=== PATIENT | female | born 1945 | race Caucasian/White ===

== ENCOUNTER 2017-05-06 09:36 | Inpatient (IN) | payer OTHER ==
[~2017-05-06] VITALS: Ht 170.2 cm; Wt 59.0 kg
[~2017-05-06 09:36] MED LIST: PLA75 PO
[2017-05-06 09:43] VITALS: Ht 170.2 cm; Wt 59.0 kg
[2017-05-06 11:11] LABS: BASOPHIL % 0.4 % (0-2); PLATELET COUNT 170 x10^3mcL (130-400)
[2017-05-06 11:13] LABS: RED CELL DISTRIBUTION WIDTH 17.3 % (11.5-14.5)
[2017-05-06 11:22] LABS: CALCIUM 8.5 mg/dL (8.5-10.1); CARBON DIOXIDE 25.8 mmol/L (21-32); POTASSIUM SERUM 3.9 mmol/L (3.5-5.1)
[2017-05-06 11:25] LABS: BILIRUBIN TOTAL 0.5 mg/dL (0.20-1.00); MAGNESIUM 1.8 mg/dL (1.8-2.4); TOTAL PROTEIN, SERUM 6.9 g/dL (6.4-8.2)
[2017-05-06 11:26] LABS: ALBUMIN 3.2 g/dL (3.4-5.0)
[2017-05-06 11:37] LABS: T3 TOTAL 0.93 ng/mL
[2017-05-06 11:48] LABS: FREE T4 1.23 ng/dL (0.76-1.46); T4(THYROXINE) 8.1 ug/dL (4.7-13.3)
[2017-05-06 12:17] LABS: UA SPECIFIC GRAVITY 1.015 (1.005-1.035); microscopic required? YES; urine erythrocyte TRACE (NEGATIVE)
[2017-05-06 12:57] LABS: AMPHETAMINE QUAL UR NONE DETECTED (NEG <=1000)
[2017-05-06] MEDS ORDERED: TRAZODONE50 M1 PO (13:05)
[2017-05-06] MEDS ORDERED: LASIX20 MG PO (13:05)
[2017-05-06] MEDS ORDERED: TOPROL XL25 MG PO (13:05)
[2017-05-06 18:15] VITALS: BP 159/76
[2017-05-06] MEDS ORDERED: LOVASTATIN40 MG PO (18:52)
[2017-05-06] MEDS ORDERED: EXTENDED PHENY100 MG PO (18:54)
[2017-05-06 20:59] VITALS: BP 119/62
[2017-05-07 05:48] LABS: BASOPHIL % 0.9 % (0-2); PLATELET COUNT 150 x10^3mcL (130-400)
[2017-05-07 06:00] LABS: CALCIUM 8.6 mg/dL (8.5-10.1); CARBON DIOXIDE 25.3 mmol/L (21-32); POTASSIUM SERUM 3.4 mmol/L (3.5-5.1)
[2017-05-07 06:11] VITALS: BP 130/61
[2017-05-07 07:07] LABS: RED CELL DISTRIBUTION WIDTH 16.7 % (11.5-14.5)
[2017-05-07 10:50] VITALS: BP 139/65
[2017-05-07 13:16] VITALS: BP 137/65
[2017-05-07 14:43] VITALS: BP 137/65
[2017-05-07 16:34] VITALS: BP 140/74
[2017-05-07 22:27] VITALS: BP 135/65
[2017-05-08] VITALS (12 sets, daily range): BP systolic 127–148; BP diastolic 47–70
[2017-05-08 08:06] LABS: BASOPHIL % 0.9 % (0-2); PLATELET COUNT 132 x10^3mcL (130-400)
[2017-05-08 08:08] LABS: RED CELL DISTRIBUTION WIDTH 17.7 % (11.5-14.5)
[2017-05-08 10:59] LABS: CALCIUM 9.2 mg/dL (8.5-10.1); CARBON DIOXIDE 28.9 mmol/L (21-32); CREATININE SERUM 1.2 mg/dL (0.6-1.0); POTASSIUM SERUM 3.7 mmol/L (3.5-5.1)
[2017-05-09 06:01] VITALS: BP 121/66
[2017-05-09 06:19] LABS: BASOPHIL % 0.7 % (0-2); PLATELET COUNT 136 x10^3mcL (130-400)
[2017-05-09 06:44] LABS: CARBON DIOXIDE 26.3 mmol/L (21-32); CREATININE SERUM 1.1 mg/dL (0.6-1.0); MAGNESIUM 1.9 mg/dL (1.8-2.4); PHOSPHOROUS 3.8 mg/dL (2.5-4.9); POTASSIUM SERUM 3.5 mmol/L (3.5-5.1)
[2017-05-09 06:50] LABS: RED CELL DISTRIBUTION WIDTH 16.8 % (11.5-14.5)
[2017-05-09 08:00] VITALS: BP 97/66
[2017-05-09 13:06] VITALS: BP 128/59
[2017-05-09 14:51] VITALS: BP 128/59
== END 2017-05-09 15:50 | disposition home health service (06) | DRG 146 ==
LOC: ED 09:36 → DU 12:47 → MU 05-09 11:57
PROVIDERS: Emergency Medicine; Family Medicine
PROC: 0JB43ZX Excision of Right Neck Subcutaneous Tissue and Fascia, Percutaneous Approach, Diagnostic (ICD-10-PCS; principal; 2017-05-08)
DX: C76.0 Malignant neoplasm of head, face and neck (principal); N17.0 Acute kidney failure with tubular necrosis; I21.A1 Myocardial infarction type 2; I50.41 Acute combined systolic (congestive) and diastolic (congestive) heart failure; J90 Pleural effusion, not elsewhere classified; N39.0 Urinary tract infection, site not specified; E44.0 Moderate protein-calorie malnutrition; I42.0 Dilated cardiomyopathy; I11.0 Hypertensive heart disease with heart failure; Z88.8 Allergy status to other drugs, medicaments and biological substances; Z95.1 Presence of aortocoronary bypass graft; R56.9 Unspecified convulsions; R06.03 Acute respiratory distress; I25.10 Atherosclerotic heart disease of native coronary artery without angina pectoris; I44.7 Left bundle-branch block, unspecified; Z87.891 Personal history of nicotine dependence; F32.9 Major depressive disorder, single episode, unspecified; R31.9 Hematuria, unspecified; D64.9 Anemia, unspecified; I73.9 Peripheral vascular disease, unspecified; Z90.49 Acquired absence of other specified parts of digestive tract; E78.5 Hyperlipidemia, unspecified; R22.1 Localized swelling, mass and lump, neck; I71.4 Abdominal aortic aneurysm, without rupture; Z68.26 Body mass index [BMI] 26.0-26.9, adult
CPT/HCPCS: 36600; 49180; 83880; 84439; 87804; 88344; J0696; J1644; J1940; J2001; J7030; Q0092; Q9967

== ENCOUNTER 2017-06-15 10:33 | Inpatient (IN) | payer OTHER ==
[~2017-06-15] VITALS: Ht 170.2 cm; Wt 56.5 kg
[~2017-06-15 10:33] MED LIST changes: +EXTENDED PHENY100 MG PO; +LASIX20 MG PO; +LOVASTATIN40 MG PO; +TOPROL XL25 MG PO; +TRAZODONE50 M1 PO
[2017-06-15 11:09] LABS: BASOPHIL % 0.4 % (0-2); PLATELET COUNT 185 x10^3mcL (130-400)
[2017-06-15 11:21] LABS: CALCIUM 9.2 mg/dL (8.5-10.1); CARBON DIOXIDE 22.9 mmol/L (21-32); CREATININE SERUM 1.2 mg/dL (0.6-1.0); POTASSIUM SERUM 3.7 mmol/L (3.5-5.1)
[2017-06-15 11:24] LABS: RED CELL DISTRIBUTION WIDTH 18.5 % (11.5-14.5)
[2017-06-15 11:26] LABS: ALBUMIN 3.5 g/dL (3.4-5.0); BILIRUBIN TOTAL 1.2 mg/dL (0.20-1.00); TOTAL PROTEIN, SERUM 7.6 g/dL (6.4-8.2)
[2017-06-15 13:32] VITALS: BP 124/97
[2017-06-15 14:02] LABS: T3 TOTAL 0.82 ng/mL
[2017-06-15 14:38] LABS: MAGNESIUM 2.1 mg/dL (1.8-2.4); PHOSPHOROUS 3.8 mg/dL (2.5-4.9)
[2017-06-15 14:41] LABS: CHOLESTEROL/HDL RATIO 5.3
[2017-06-15 14:52] LABS: FREE T4 1.46 ng/dL (0.76-1.46); FREE THYROXINE INDEX 3.1 ug/dL (1.4-4.5); T4(THYROXINE) 8.6 ug/dL (4.7-13.3)
[2017-06-15 15:16] LABS: microscopic required? NO
[2017-06-15 15:25] LABS: urine erythrocyte NEGATIVE (NEGATIVE)
[2017-06-15 15:33] LABS: AMPHETAMINE QUAL UR NONE DETECTED (NEG <=1000)
[2017-06-15 16:45] VITALS: BP 124/97
[2017-06-15 17:21] VITALS: BP 144/78
[2017-06-15 20:34] VITALS: BP 153/87
[2017-06-15] MEDS ORDERED: METOPROLOL TART25 M1 PO (21:14)
[2017-06-15 21:45] VITALS: BP 155/83
[2017-06-16 05:08] VITALS: BP 143/73
[2017-06-16 06:08] LABS: BASOPHIL % 0.8 % (0-2); PLATELET COUNT 157 x10^3mcL (130-400)
[2017-06-16 06:51] LABS: RED CELL DISTRIBUTION WIDTH 17.9 % (11.5-14.5)
[2017-06-16 07:03] LABS: CALCIUM 8.6 mg/dL (8.5-10.1); CARBON DIOXIDE 28.3 mmol/L (21-32); CREATININE SERUM 1.2 mg/dL (0.6-1.0); POTASSIUM SERUM 3.7 mmol/L (3.5-5.1)
[2017-06-16 09:04] VITALS: Ht 170.2 cm; Wt 56.5 kg
[2017-06-16 09:17] LABS: TOTAL PROTEIN, SERUM 6.5 g/dL (6.4-8.2)
[2017-06-16 09:42] VITALS: BP 159/71
[2017-06-16 13:51] VITALS: BP 144/74
[2017-06-16 16:38] VITALS: BP 119/53
[2017-06-16 20:09] VITALS: BP 145/77
[2017-06-17 05:37] VITALS: BP 145/68
[2017-06-17 06:39] LABS: PLATELET COUNT 184 x10^3mcL (130-400)
[2017-06-17 07:05] LABS: CALCIUM 8.7 mg/dL (8.5-10.1); CARBON DIOXIDE 31.3 mmol/L (21-32); CREATININE SERUM 1.3 mg/dL (0.6-1.0); POTASSIUM SERUM 3.9 mmol/L (3.5-5.1)
[2017-06-17 08:06] LABS: BASOPHIL % 0 % (0-2); RED CELL DISTRIBUTION WIDTH 18.6 % (11.5-14.5)
[2017-06-17 09:38] VITALS: BP 119/47
[2017-06-17 16:28] VITALS: BP 104/53
[2017-06-17 21:12] VITALS: BP 128/57
[2017-06-18 05:45] LABS: CALCIUM 9.2 mg/dL (8.5-10.1); CARBON DIOXIDE 34.2 mmol/L (21-32); CREATININE SERUM 1.2 mg/dL (0.6-1.0); PHOSPHOROUS 4.4 mg/dL (2.5-4.9); POTASSIUM SERUM 4.4 mmol/L (3.5-5.1)
[2017-06-18 05:56] LABS: BASOPHIL % 0.1 % (0-2); PLATELET COUNT 182 x10^3mcL (130-400); RED CELL DISTRIBUTION WIDTH 18.4 % (11.5-14.5)
[2017-06-18 08:11] VITALS: BP 128/57
[2017-06-18 10:00] VITALS: BP 134/61
[2017-06-18 14:05] VITALS: BP 123/57
[2017-06-18 17:29] VITALS: BP 125/55
[2017-06-18 21:43] VITALS: BP 129/60
[2017-06-19 05:37] VITALS: BP 142/68
[2017-06-19 06:35] LABS: CALCIUM 8.9 mg/dL (8.5-10.1); CREATININE SERUM 1.1 mg/dL (0.6-1.0); PHOSPHOROUS 4.1 mg/dL (2.5-4.9); POTASSIUM SERUM 4.3 mmol/L (3.5-5.1)
[2017-06-19 06:53] LABS: PLATELET COUNT 173 x10^3mcL (130-400)
[2017-06-19 07:10] LABS: BASOPHIL % 0 % (0-2); RED CELL DISTRIBUTION WIDTH 18.2 % (11.5-14.5)
[2017-06-19 08:43] VITALS: BP 146/74
[2017-06-19 18:04] VITALS: BP 129/60
[2017-06-19 21:14] VITALS: BP 120/53
[2017-06-20 05:56] VITALS: BP 144/70
[2017-06-20 06:07] LABS: PLATELET COUNT 183 x10^3mcL (130-400)
[2017-06-20 06:10] LABS: CALCIUM 9.3 mg/dL (8.5-10.1); CARBON DIOXIDE 30.5 mmol/L (21-32); CREATININE SERUM 1.3 mg/dL (0.6-1.0); POTASSIUM SERUM 4.4 mmol/L (3.5-5.1)
[2017-06-20 06:21] LABS: BASOPHIL % 0 % (0-2); RED CELL DISTRIBUTION WIDTH 18.8 % (11.5-14.5)
[2017-06-20 08:22] VITALS: BP 107/43
[2017-06-20 17:33] VITALS: BP 141/54
[2017-06-20 21:27] VITALS: BP 130/55
[2017-06-21 05:41] VITALS: BP 150/75
[2017-06-21 09:34] VITALS: BP 142/61
[2017-06-21 13:12] VITALS: BP 120/52
[2017-06-21 14:03] VITALS: BP 111/37
[2017-06-21] MEDS ORDERED: BAY PO (14:37)
[2017-06-21] MEDS ORDERED: ZES5 PO (14:38)
[2017-06-21] MEDS ORDERED: COLACE100 MG PO (17:51)
== END 2017-06-21 18:07 | disposition home health service (06) | DRG 291 ==
LOC: ED 10:33 → MU 12:10 → DU 12:10 → MU 13:26 → DU 13:28 → MU 06-17 00:39
PROVIDERS: Emergency Medicine; Family Medicine; Student in an Organized Health Care Education/Training Program
DX: I50.43 Acute on chronic combined systolic (congestive) and diastolic (congestive) heart failure (principal); J96.01 Acute respiratory failure with hypoxia; N17.0 Acute kidney failure with tubular necrosis; I24.8 Other forms of acute ischemic heart disease; C79.89 Secondary malignant neoplasm of other specified sites; I42.0 Dilated cardiomyopathy; J90 Pleural effusion, not elsewhere classified; R13.10 Dysphagia, unspecified; I11.0 Hypertensive heart disease with heart failure; I44.7 Left bundle-branch block, unspecified; I71.2 Thoracic aortic aneurysm, without rupture; I71.4 Abdominal aortic aneurysm, without rupture; N20.0 Calculus of kidney; D64.9 Anemia, unspecified; Z68.21 Body mass index [BMI] 21.0-21.9, adult; Z95.1 Presence of aortocoronary bypass graft; Z86.73 Personal history of transient ischemic attack (TIA), and cerebral infarction without residual deficits; Z87.891 Personal history of nicotine dependence
CPT/HCPCS: 36600; 82947; 83880; 84439; 92610-GN; 97110-GP; 97116-GP; 97530-GP; J1644; J1940; J1956; J2920; J7030; J7040; J7050; J7620; Q0092; Q9967